=== PATIENT | female | born 1990 | race Caucasian/White ===

== ENCOUNTER 2020-06-24 01:23 | Emergency (ER) | payer OTHER ==
[2020-06-24 02:29] LABS: HEMOGLOBIN 11.8 gm/dl (12.3-15.3); RED BLOOD COUNT 4.33 M/UL (4.00-5.10); WHITE BLOOD COUNT 10.2 K/UL (4.5-11.0)
[2020-06-24 02:44] LABS: BUN/CREATININE RATIO 19 (0-10)
[2020-06-24] MEDS ORDERED: MIRALAX 119 GR119 GM GT (07:42)
== END 2020-06-24 09:00 | disposition home or self-care (01) ==
LOC: ER1 01:23
PROVIDERS: Emergency Medicine
DX: K59.00 Constipation, unspecified (principal); J18.9 Pneumonia, unspecified organism; Z86.73 Personal history of transient ischemic attack (TIA), and cerebral infarction without residual deficits; Z20.822 Contact with and (suspected) exposure to COVID-19
CPT/HCPCS: 0240U; 71045; 80053; 82550; 82553; 83605; 83690; 84484; 84702; 85025; 87040; 93005; 96374; 96375; 99285; J2270; J2405; Q9967

== ENCOUNTER 2021-11-24 12:34 | Emergency (ER) | payer OTHER ==
[~2021-11-24 12:34] MED LIST: MIRALAX 119 GR119 GM GT
[2021-11-24 15:27] LABS: HEMOGLOBIN 11.9 gm/dl (12.3-15.3); RED BLOOD COUNT 4.15 M/UL (4.00-5.10); WHITE BLOOD COUNT 8.4 K/UL (4.5-11.0)
[2021-11-24 16:17] LABS: BUN/CREATININE RATIO 10 (0-10)
== END 2021-11-24 23:17 | disposition home or self-care (01) ==
LOC: ER1 12:34
PROVIDERS: Physician Assistant Medical
DX: G91.9 Hydrocephalus, unspecified (principal); R55 Syncope and collapse; M54.6 Pain in thoracic spine; R10.816 Epigastric abdominal tenderness; Z86.73 Personal history of transient ischemic attack (TIA), and cerebral infarction without residual deficits; Z20.822 Contact with and (suspected) exposure to COVID-19
CPT/HCPCS: 0240U; 70450; 71045; 72125; 72128; 80053; 81001; 82550; 82553; 84484; 85025; 87081; 87880; 93005; 96374; 96375; 99284; J0696; J2270; J2405